=== PATIENT | female | born 1950 | race Caucasian/White ===

== ENCOUNTER 2021-12-03 14:57 | Outpatient (CLI) | payer BC, SELFPAY ==
--- NOTE | ~2021-12-03 | DEXA_ITS ---
Bone Density Report Name: MODESTA FRANKLIN Age: 71 Sex: Female Ethnicity: White Date of : 1950 Indication: postmenopausal; parental hip fracture; cancer; Referring Provider: SILVIA POLLOCK Study: Bone densitometry was performed. Exam Date: December 03, 2021 Accession number: [id number] Bone Density: Region BMD T-score Z-score Classification Total Forearm (Left) 0.435 -2.5 -0.5 1/3 Forearm (Left) 0.549 -2.3 -0.3 UD Forearm (Left) 0.440 0.6 2.1 World Health Organization criteria for BMD impression classify patients as: Normal (T-score at or above -1.0), Osteopenia (T-score between -1.0 and -2.5), or Osteoporosis (T-score at or below -2.5). Clinical Information Provided by Patient: Parent has had a hip fracture Has used the following medications: Vitamin D Has the following medical conditions: Cancer Patient maximum height was 62 Menopause Age: 53 No regular weight bearing exercise Drinks caffeinated beverages Onset of menses at age 14 Number of children 2 Impression: The patient has low bone mass, based on the Left Third Radius T-score. The patient has risk factors, including: parental hip fracture. Discussion: BONE DENSITY IS LOW AT ONE OR MORE SKELETAL SITES. This patient's lowest T-score is low at one or more skeletal sites. It meets the World Health Organization's (WHO) criteria for ?low bone mass? (T-score between -1.0 and -2.5). The patient's 10-year risk of fracture as calculated by FRAX is less than the threshold where pharmacological therapy is recommended by the National Osteoporosis Foundation (NOF). However, all treatment decisions require clinical judgment and consideration of individual patient factors, including patient preferences, comorbidities, previous drug use, risk factors not captured in the FRAX model (e.g., frailty, falls, vitamin D deficiency, increased bone turnover, interval significant decline in bone density) and possible under or overestimation of fracture risk by FRAX. The patient should follow a healthful lifestyle (good nutrition with adequate calcium and vitamin D, and appropriate weight-bearing exercise). Follow-Up: Consider repeating this study in 2 to 3 years to reassess this patient's status, or sooner if there is some new clinical indication. Reported by: JETHRO on 12/03/2021 3:41:00 PM. Reviewed, dictated and finalized at location Rachel LARA
--- NOTE | ~2021-12-03 | DEXA_ITS ---
Bone Density Report Name: MODESTA FRANKLIN Age: 71 Sex: Female Ethnicity: White Date of : 1950 Indication: postmenopausal; parental hip fracture; cancer; Referring Provider: SILVIA POLLOCK Study: Bone densitometry was performed. Exam Date: December 03, 2021 Accession number: [id number] Bone Density: Region BMD T-score Z-score Classification AP Spine (L1-L4) 1.161 1.0 3.1 Normal World Health Organization criteria for BMD impression classify patients as: Normal (T-score at or above -1.0), Osteopenia (T-score between -1.0 and -2.5), or Osteoporosis (T-score at or below -2.5). Previous Exams: Region Exam Age BMD T-score BMD Change BMD Change Date g/cm2 vs Baseline vs Previous AP Spine(L1-L4) 12/03/2021 71 1.161 1.0 -0.053(-4.4%)* 0.071(6.5%)* 11/28/2018 68 1.090 0.4 -0.124(-10.2%) -0.095(-8.0%)* 11/23/2016 66 1.185 1.3 -0.029(-2.4%)* -0.029(-2.4%)* 11/08/2014 64 1.214 1.5 *Denotes significance at 95% confidence level, LSC for AP Spine = 0.022 g/cm2 Clinical Information Provided by Patient: Parent has had a hip fracture Has used the following medications: Vitamin D Has the following medical conditions: Cancer Patient maximum height was 62 Menopause Age: 53 No regular weight bearing exercise Drinks caffeinated beverages Onset of menses at age 14 Number of children 2 Impression: The patient has normal bone mass. The patient has risk factors, including: parental hip fracture. No significant bone loss was observed. Discussion: LOW RISK OF FRACTURE; BONE DENSITY IS WELL ABOVE THE MINIMUM DESIRABLE LEVEL AND ABOVE AVERAGE FOR AGE AND SEX AT ALL SKELETAL SITES TESTED. This person's bone density is above expected limits for age and sex. This is rarely clinically significant, but should be pursued if there are significant musculoskeletal complaints. The patient should follow a healthful lifestyle (good nutrition with adequate calcium and vitamin D, and appropriate weight-bearing exercise). Follow-Up: Consider repeating this study in 5 years or sooner if there is some new clinical indication. Reported by: [facility] on 12/03/2021 3:21:00 PM. Reviewed, dictated and finalized at location [facility]
== END 2021-12-03 14:58 | disposition home or self-care (01) ==
PROVIDERS: PCP Family Medicine Adolescent Medicine; Visit Provider Obstetrics & Gynecology Gynecology
DX: Z78.0 Asymptomatic menopausal state (principal)
CPT/HCPCS: 77080; 77081

== ENCOUNTER 2022-12-30 14:28 | Emergency (ER) | payer MEDICARE, SELFPAY ==
[2022-12-30 14:53] VITALS: BP 150/77; PULSE 73; RESP 18; TEMP 36.9; O2SAT 98
--- NOTE | 2022-12-30 15:31 | ED.URI ---
HPI - URI/Sore Throat General Chief Complaint: Upper Respiratory Infection Stated Complaint: sorethroat,rt ear pain Time Seen by Provider: 12/30/22 15:15 Source: patient, RN notes reviewed and old records reviewed Mode of arrival: ambulatory Limitations: no limitations History of Present Illness HPI Narrative: 72-year-old female presents to the [facility] with right ear pain and sore throat, worse at night. reports sinus drainage symptoms for 1 week Related Data Home Medications Medication Instructions Recorded Confirmed cholecalciferol (vitamin D3) 10 10 mcg PO DAILY 09/20/22 09/20/22 mcg (400 unit) capsule Allergies Allergy/AdvReac Type Severity Reaction Status Date / Time emycin AdvReac Unknown Nausea Uncoded 09/20/22 10:07 Review of Systems Review of Systems: All systems reviewed & are unremarkable except as noted in HPI and below Constitutional: Constitutional: Reports no additional constitutional complaints Eyes: Eyes: Reports no additional eye complaints ENT: Reports as per HPI Cardiovascular: Cardiovascular: Reports no additional cardiovascular complaints, Denies chest pain and Denies dyspnea Respiratory: Respiratory: Reports no additional respiratory complaints, Denies chest congestion, Denies cough and Denies dyspnea Gastrointestinal: Gastrointestinal: Reports no additional gastrointestinal complaints, Denies abdominal pain, Denies nausea and Denies vomiting Musculoskeletal: Musculoskeletal: Reports no additional musculoskeletal complaints Integumentary/Breasts: Skin/Breast: Reports system reviewed and no additional complaints, except as docu Neurologic: Reports system reviewed and no additional complaints, except as documented Psychiatric: Psychiatric: Reports no additional psychiatric complaints Allergic/Immunologic: Allergic/Immunologic: Reports no additional allergic/immunologic complaints [facility] Past Medical History Medical History Hx of breast cancer (~11/2015) Surgical History Surgical History History of hip replacement, 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 There is no relevant family history pertinent to the patient complaint. Exam Const: General: cooperative, healthy appearing, comfortable, no acute distress, well developed, alert and well nourished Nutritional Appearance: well nourished Orientation/consciousness: patient oriented x3 Limitations: no limitations HENMT: Head: normal to inspection Ears: hearing grossly normal bilaterally, external ears normal, EAC's normal, mastoids normal, no periauricular adenopathy and TM abnormal bulging bilateral, dull bilateral and wth effusion serous bilateral; not erythematous and with no loss of landmarks Face/Nose/Sinus: Normal external nose present, Normal nares present, Normal nasal mucous membranes and turbinates present and normal facial exam Face and sinus: normal facial exam Mouth: Yes Normal oral and palatal mucosa present, Yes lip normal and Yes moist mucous membranes Throat: posterior oropharynx normal, uvula midline and postnasal drainage Eyes: General: appearance normal, both eyes and all related structures Alignment and Position: alignment normal Periorbital: periorbital findings normal Conjunctivae: conjunctivae normal Pupils: Equal, round and reactive pupils present EOM: EOMs intact bilaterally Neck: Neck: normal visual inspection, full ROM, no lymphadenopathy and no meningeal sig
== END 2022-12-30 15:43 | disposition home or self-care (01) ==
PROVIDERS: Emergency Provider Nurse Practitioner; PCP Family Medicine Adolescent Medicine
DX: H69.91 Unspecified Eustachian tube disorder, right ear (principal)
CPT/HCPCS: 99213; G0463

== ENCOUNTER 2025-02-12 14:09 | Emergency (ER) | payer MEDICARE, SELFPAY ==
[2025-02-12 14:20] VITALS: BP 145/87; PULSE 80; RESP 19; TEMP 36.8; O2SAT 96
--- NOTE | 2025-02-12 14:45 | ED.SKABFB ---
HPI - Skin/Abscess/Foreign Bdy General Chief complaint: Upper Respiratory Infection Stated complaint: Insect Bite/ Sore Throat Time Seen by Provider: 02/12/25 14:22 Source: patient and RN notes reviewed Mode of arrival: ambulatory Limitations: no limitations History of Present Illness HPI narrative: Patient presents today complaining of insect bite to her left anterior and right posterior upper legs that were sustained 4 days ago at home. States the rash associated with the insect bites has continued to worsen and is pruritic. She has not tried any [id number] treatment prior to arrival. Related Data Home Medications ?Medication ?Instructions ?Recorded ?Confirmed ?Last Taken ?Type cholecalciferol (vitamin D3) 10 10 mcg PO DAILY 09/20/22 03/19/24 Unknown History mcg (400 unit) capsule calcium 334 mg tablet PO QHS 03/19/24 03/19/24 Unknown History (carbonate)-magnesium 134 mg (oxide)-zinc 5 mg tablet Allergies Allergy/AdvReac Type Severity Reaction Status Date / Time erythromycin base (From AdvReac Mild Nausea Verified 02/12/25 14:32 Erythrocin) Review of Systems Review of Systems: CONSTITUTIONAL: Denies body aches, fever, chills, or sweats. EYES: Denies visual changes, redness, or discharge. ENT: Denies rhinorrhea, congestion, sore throat, or otalgia. CARDIOVASCULAR: Denies chest pain, palpitations, or edema. RESPIRATORY: Denies cough or dyspnea. GASTROINTESTINAL: Denies abdominal pain, nausea, vomiting, or diarrhea. GENITOURINARY: Denies dysuria or hematuria. SKIN: + insect bites/rash MUSCULOSKELETAL: Denies back pain, joint pain, or myalgia. NEUROLOGIC: Denies headache, numbness, tingling, or weakness. PSYCH: Denies depression or anxiety. [facility] Past Medical History Medical History Hx of breast cancer (~11/2015) Surgical History Surgical History History of hip replacement, total (11/2017) Bilateral History of lumpectomy of both breasts (11/2015) Family History Family History Father Malignant neoplasm of prostate Skin cancer Glaucoma Social History Social History Smoking status: Never smoker Comments At time of signature, I have reviewed and agree with nursing past medical, surgical, social and family history unless otherwise noted. Please see nursing chart for further information. There is no relevant family history pertinent to the presenting complaint Exam Narrative: GENERAL: Well-appearing, well-nourished, and in no acute distress. HEAD: Normocephalic, atraumatic. EYES: EOMI. No redness or drainage. Conjunctivae normal. ENT: Mucous membranes pink and moist. NECK: Normal AROM. CHEST: No respiratory distress. EXTREMITIES: Normal range of motion. No edema. SKIN: Warm, dry. Capillary refill normal. Normal skin turgor. Left le cm area of erythema to left anterior thigh with surrounding erythema and papular rash extending up to the groin. Puncture wound consistent with insect bite to the right posterior thigh with surrounding erythema and mild localized to without induration or signs of bacterial infection. NEURO: No focal deficits. Alert and oriented x3. Gait steady. PSYCH: Normal affect. No signs of depression or anxiety. Course Course Level of Care: Express Care Visit Vital Signs Vital signs: Vital Signs Temperature 98.2 F 02/12/25 14:20 Pulse Rate 80 02/12/25 14:20 Respiratory Rate 19 02/12/25 14:20 Blood Pressure 145/87 H 02/12/25 14:20 Pulse Oximetry 96 02/12/25 14:20 Oxygen Delivery Room Air 02/12/25 14:20 Temperature 98.2 F 02/12/25 14:20 Pulse Rate 80 02/12/25 14:20 Respiratory Rate 19 02/12/25 14:20 Blood Pressure 145/87 H 02/12/25 14:20 Pulse Oximetry 96 02/12/25 14:20 Oxygen Delivery Room Air 02/12/25 14:20 Reviewed MDM - Skin/Abscess/Foreign Bdy MDM Narrative Medical decision making narrative: Patient will be started on some oral prednisone and has been instructed to try topical Benadryl cream or calamine lotion to help with itching. Patient agrees with plan. Anticipatory guidance given. Differential Diagnosis Differential diagnosis: Likely abscess of skin or subcutaneous tissue, cellulitis, insect bites and contact dermatitis Critical Care Time Critical Care Time Critical Care Time: No Discharge Plan Discharge Clinical Impression: Insect bite Patient Disposition: Home, Self-Care Condition: Stable Instructions: Insect Bite or Sting (ED) Additional Instructions: Please take the prednisone as directed. You may use some topical calamine lotion or Benadryl cream to help with itching if needed. Follow-up with your PCP in 2-3 days if symptoms are not improving. Your blood pressure was elevated above 120/80 today at Urgent Care. This puts you above the threshold for follow up. Please schedule a followup visit with your personal physician as soon as possible, for further evaluation and treatment. Even blood pressure exceeding 120/80 may indicate pre-hypertension. Patient Language: Ukrainian Prescriptions: New prednisone 20 mg tablet 40 mg PO DAILY 5 Days Qty: 10 0RF No Action calcium carb-mag oxide-zinc ox 334-134-5 mg tablet PO QHS cholecalciferol (vitamin D3) 10 mcg (400 unit) capsule 10 mcg PO DAILY hydrochlorothiazide 25 mg tablet 25 mg PO DAILY Qty: 90 3RF atorvastatin 10 mg tablet 10 mg PO DAILY Qty: 90 0RF Follow-up/Referrals: Morgan Little MD [Primary Care Provider] -
== END 2025-02-12 15:00 | disposition home or self-care (01) ==
PROVIDERS: Emergency Provider Nurse Practitioner; PCP Family Medicine Adolescent Medicine
DX: S70.361A Insect bite (nonvenomous), right thigh, initial encounter (principal); W57.XXXA Bitten or stung by nonvenomous insect and other nonvenomous arthropods, initial encounter; Z85.3 Personal history of malignant neoplasm of breast; Z96.643 Presence of artificial hip joint, bilateral; Z90.13 Acquired absence of bilateral breasts and nipples
CPT/HCPCS: 99213; G0463

== ENCOUNTER 2025-07-07 08:45 | Emergency (ER) | payer MEDICARE, SELFPAY ==
--- NOTE | 2025-07-07 08:52 | ED.FEMALEGU ---
HPI - Female Genitourinary General Chief complaint: Urogenital-Female Stated complaint: UTI/Blood In Urine Time Seen by Provider: 07/07/25 09:01 Source: patient, RN notes reviewed and old records reviewed Mode of arrival: ambulatory Limitations: no limitations History of Present Illness HPI Narrative: 74-year-old female presents to the [facility] with concerns for a UTI. Reports blood in her urine. Patient reports intermittent discomfort for 1 week. For abdominal pressure, saw blood in her urine today, 1 week of frequency and urgency. Denies fevers, nausea, vomiting. No CVA tenderness Related Data Home Medications ?Medication ?Instructions ?Recorded ?Confirmed ?Last Taken ?Type cetirizine .ROUTE 07/07/25 Unknown History Allergies Allergy/AdvReac Type Severity Reaction Status Date / Time erythromycin base (From AdvReac Mild Nausea Verified 07/07/25 08:52 Erythrocin) Review of Systems Review of Systems: All systems reviewed & are unremarkable except as noted in HPI and below Constitutional: Constitutional: Reports no additional constitutional complaints Genitourinary: Genitourinary: Reports as per HPI Musculoskeletal: Musculoskeletal: Reports no additional musculoskeletal complaints Integumentary/Breasts: Skin/Breast: Reports system reviewed and no additional complaints, except as docu PMFSH Past Medical History Medical History Hx of breast cancer (~11/2015) Surgical History Surgical History History of hip replacement, 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 There is no relevant family history pertinent to the patient complaint. Exam Const: General: cooperative, healthy appearing, comfortable, no acute distress, well developed, alert and well nourished Nutritional Appearance: well nourished Orientation/consciousness: patient oriented x3 Limitations: no limitations HENMT: Head: normal to inspection Mouth: Yes Normal oral and palatal mucosa present, Yes lip normal, Yes tongue normal and Yes moist mucous membranes Eyes: General: appearance normal, both eyes and all related structures Alignment and Position: alignment normal Neck: Neck: normal visual inspection, full ROM, no lymphadenopathy and no meningeal signs Chest: Chest palpation & inspection: normal inspection of the chest Resp: Effort & Inspection: normal respiratory effort and able to speak in complete sentences Auscultation: clear to auscultation bilaterally, no crackles, no rales, no rhonchi and no wheezes Cardio: Rate: regular rate GI: GI Palp: No abdominal tenderness : General: Yes no CVA tenderness Skin: General skin exam: normal color and no rashes or lesions noted Neuro: General: patient oriented x3, gait normal, moves all extremities and no meningeal signs Cognition (Neuro): normal cognition Speech: normal speech Gait exam (Neuro): Normal gait present Extrem: General: normal to inspection, full ROM, capillary refill normal and normal gait Psych: Appearance: grossly normal and well kempt Mental Status: mental status grossly normal Speech and movement: Normal speech and movement present and Clear speech present Affect: normal affect Attitude: cooperative Course Course Level of Care: Express Care Visit Vital Signs Vital signs: Vital Signs Temperature 97.4 F L 07/07/25 08:54 Pulse Rate 66 07/07/25 08:54 Respiratory Rate 16 07/07/25 08:54 Blood Pressure 140/79 07/07/25 08:54 Pulse Oximetry 97 07/07/25 08:54 Oxygen Delivery Room Air 07/07/25 08:54 Temperature 97.4 F L 07/07/25 08:54 Pulse Rate 66 07/07/25 08:54 Respiratory Rate 16 07/07/25 08:54 Blood Pressure 140/79 07/07/25 08:54 Pulse Oximetry 97 07/07/25 08:54 Oxygen Delivery Room Air 07/07/25 08:54 Reviewed MDM - Female Genitourinary MDM Narrative Medical decision making narrative: Patient sitting in exam room. Patient is nontoxic, vitals stable. Patient presents with concerns for UTI. Urine dip shows probable UTI with positive leukocytes, positive blood Patient will be covered with Augmentin Patient appropriate for outpatient treatment with close follow-up Culture sent Discharge instructions reviewed with patient, as well as provided in writing per nursing staff. The instructions also include specific and strict return/GO TO THE ER as well as f/u information. All questions have been answered, and the patient deny any further questions with discharge and discharge plan. Some parts of this dictation were generated by voice recognition software and may contain typographical and/or grammatical inaccuracies. Differential Diagnosis Differential diagnosis: Likely urinary tract infection and cystitis Lab Data Labs: Lab Results 07/07/25 Range/Units 09:05 POC Urine Color Red POC Urine Clarity Cloudy POC Urine pH 5.5 POC Ur Specif [place] 1.025 POC Urine Protein 3+ (Negative) POC Ur Glucose (UA) Negative (Negative) POC Urine Ketones 1+ (Negative) POC Urine Blood 3+ (Negative) POC Urine Nitrite Negative (Negative) POC Urine Bilirubin 3+ (Negative) POC Urine Urobilinogen 2.0 POC U Leukocyte Esteras 3+ (Negative) Reviewed Critical Care Time Critical Care Time Critical Care Time: No Discharge Plan Discharge Clinical Impression: Urinary tract infection with hematuria Qualifiers: Urinary tract infection type: acute cystitis Qualified Code(s): N30.01 - Acute cystitis with hematuria Patient Disposition: Home Condition: Stable Instructions: Antibiotic Form, Urinary Tract Infection in Women (ED), Hematuria (ED) Additional Instructions: Increased water intake Take Tylenol as needed for pain Take antibiotic as prescribed Today your urine dip showed a probability of a UTI. You have been prescribed an antibiotic. Your urine will be sent to our lab for a culture. If at that time a bacteria grows that is not covered by the antibiotic prescribed you will be notified. Follow-up with primary care For new or worsening symptoms go directly to the emergency room Patient Language: [place]ese Prescriptions: New amoxicillin-pot clavulanate 875-125 mg tablet 1 tablet PO Q12H Qty: 10 0RF No Action cetirizine [Zyrtec] .ROUTE atorvastatin 10 mg tablet 10 mg PO DAILY Qty: 90 3RF hydrochlorothiazide 25 mg tablet 25 mg PO DAILY Qty: 90 3RF Follow-up/Referrals: Morgan Little MD [Primary Care Provider] - 1 Week ([facility] care follow up ) Time of Disposition: 09:14
[2025-07-07 08:54] VITALS: BP 140/79; PULSE 66; RESP 16; TEMP 36.3; O2SAT 97
[2025-07-07 09:08] LABS: EDUAAPPEAR Cloudy; EDUABILI 3+ (Negative); EDUABLOOD 3+ (Negative); EDUACOLOR1 Red; EDUAGLUCOSE Negative (Negative); EDUAKETONE 1+ (Negative); EDUALEUKO 3+ (Negative); EDUANITRATE Negative (Negative); EDUAPH 5.5; EDUAPROTEIN 3+ (Negative); EDUASPGRAVITY 1.025; EDUAUROBILI 2.0
== END 2025-07-07 09:23 | disposition home or self-care (01) ==
PROVIDERS: Emergency Provider Nurse Practitioner; PCP Family Medicine Adolescent Medicine
DX: N30.01 Acute cystitis with hematuria (principal); Z85.3 Personal history of malignant neoplasm of breast; Z96.643 Presence of artificial hip joint, bilateral; Z90.13 Acquired absence of bilateral breasts and nipples
CPT/HCPCS: 81003; 87086; 99213; G0463